=== PATIENT | male | born 2000 | race Two or more races ===

== ENCOUNTER 2018-05-15 20:44 | Emergency (ER) | payer BC ==
[2018-05-15] MEDS ORDERED: PROPARACAINE 0.5% 15 ML OPHT DROP OP ONE (21:54)
[2018-05-15] MEDS ORDERED: FLUORESCEIN SODIUM 1 MG STRIP OP ONE (21:54)
[2018-05-15 22:34] VITALS: BP 141/76
--- NOTE | 2018-05-15 23:00 | EDPHY ---
General Time Seen by Provider: 05/15/18 21:23 Narrative: CLINICAL IMPRESSION: Vitreitis ASSESSMENT/PLAN: 17-year-old male presents to the emergency department with subjective vision changes to the right eye after he was accidentally hit in the eye by a soccer ball kicked by a teammate earlier tonight. Visual acuity 20/70 in the affected eye, patient is not wearing his eyeglasses. On exam, he has no clinical signs to suggest hyphema, subconjunctival hemorrhage, cells or flare, and has no evidence of retinal detachment by ultrasound. Intra-ocular pressure is 23 on the affected eye. CT scan shows no evidence of open globe injury or orbital blowout fracture. I discussed patient's case with Dr. Santiago on-call for Ophthalmology. She did not feel patient needed emergent ophthalmological evaluation. No prescription eyedrops recommended. She would like the patient be seen Thursday for a dilated eye exam, ER return sooner for any kind of curtain or veil sensation. These recommendations were explained to the patient who verbalized understanding. Referrals given, warning signs return to emergency department sooner outlined and discharge. DIFFERENTIAL DX: Differential diagnosis includes but not limited to traumatic iritis, traumatic uveitis, retinal tear, open globe injury, hyphema ED PROCEDURES: See lab and/or imaging results below Bedside US by Dr. Perdue is negative for retinal tear or lens dislocation. IOP checked by Dr. Perdue at 23 in affected eye ED COURSE: 10:55 p.m.: CT scan read by Dr. Casey, no acute fracture or globe injury identified. 11:15 p.m.: Discussed with Dr. Santiago who is on-call for Ophthalmology. She did not feel patient needed to be seen emergently but should be seen on Thursday for a dilated eye exam. Her impression was "vitreous floaters". She advised the patient to be seen sooner for any kind of curtain or [place] sensation over the eye. No antibiotic or prescription eyedrops. Referral to Ophthalmology provided to the patient. CHIEF COMPLAINT: Right eye discomfort and blurry vision HPI: 17-year-old otherwise healthy male presents to the emergency department with right eye blurry vision after he was hit in the eye by a soccer ball kicked by a wallpaper remover steam approximately 1 hr prior to arrival. Patient wears glasses but does not have them with him. He has never had prior eye surgery. He reports blurry vision in the periphery of the right eye with black squiggly lines in his central visual field. He states initially after the accident he had decreased vision on the inferior aspect of his visual field which seems to have improved. He reports no bleeding or discharge from the eye. No headache, dizziness, nausea, vomiting. No facial pain or malocclusion. No dental injury or intraoral laceration. He did not lose consciousness. He is otherwise healthy. PAST MEDICAL HISTORY: None reported See triage summary and nurse notes for addition applicable history Pertinent Past Surgical History: Right knee surgery Family History: Noncontributory Social History: Otherwise healthy REVIEW OF SYSTEMS: A full 10 point review of systems was negative except for those mentioned in HPI. PHYSICAL EXAM: General Appearance: Alert, oriented, appropriate, cooperative, NAD, well hydrated, non-toxic appearing, VSS, no hypoxia. HEENT: TMs are clear bilaterally no perforation or FB, no injection, no evidence of serous or mucopurulent otitis. No hemotympanum or Santacruz sign Oropharynx clear is no erythema or exudates, no tonsillar hypertrophy or asymmetry. No midface instability or suggestion of [place] fracture. Dentition without abnormality. Eyes: PERRLA, photophobia noted, VA 20/70 right, 20/40 left, 20/30 together. no nystagmus, no hyphema, swelling and contusion to upper eyelid, no discharge, no pain. Conjunctiva pink, no pallor or injection, no subconjunctival hemorrhage. Pressure in right eye is 23. US negative for retinal tear. Slit-lamp exam shows no evidence of cells or flare, corneal abrasion, corneal ulcer or foreign body Neck: Supple, nontender, no lymphadenopathy, no midline pain, FROM, no meningismus. Skin: Warm, dry, no rashes, no nodules on palpation. MEDICAL DECISION MAKING: Secondary supervising physician at time of evaluation was: Dr. Perdue. Diagnosis: Vitreitis . New, requires workup Summary: See Assessment and Plan for summary of ED visit Independent visualization of images, tracing, or specimens: Yes. Decision to obtain medical records or history from someone other than the patient: No Review / Summarize previous medical records: None available Discussed patient with another provider: Dr. Perdue who also saw and examined the patient, Dr. Santiago Patient Progress: Improved. - Diagnostics Imaging Results: Imaging Impressions Face CT 05/15/18 22:29 Impression: No evidence for facial bone fracture. Results called and discussed with Maynor Montez PA-C at 05/15/2018 22:56. - History Smoking Status: Never smoked - Objective Vital Signs: Initial Vital Signs Temperature (C) 36.8 C 05/15/18 20:48 Heart Rate 100 05/15/18 20:48 Respiratory Rate 18 05/15/18 20:48 Blood Pressure 129/78 H 05/15/18 20:48 O2 Sat (%) 95 05/15/18 20:48 O2 Delivery Mode Room Air Allergies/Adverse Reactions: No Known Allergies Allergy (Unverified 05/15/18 20:50) Home Medications: Medication Instructions Recorded NK [No Known Home Meds] 05/15/18 Medications Given: Discontinued Medications Fluorescein Sodium (Bioglo) 1 mg OP EDNOW ONE Stop: 05/15/18 21:55 Last Admin: 05/15/18 22:33 Dose: 1 mg Proparacaine HCl (Alcaine 0.5%) 1 drops OP EDNOW ONE Stop: 05/15/18 21:55 Last Admin: 05/15/18 22:32 Dose: 1 drop Departure - Departure Disposition: Home, Routine, Self-Care Clinical Impression: Vitreitis, right Condition: Good Instructions: Blurred Vision (ED) Additional Instructions: DISCHARGE INSTRUCTIONS FROM YOUR DOCTOR Thank you for visiting our emergency department today. Please keep in mind that discharge from the emergency department does not mean that there is nothing wrong - it simply means that we have not identified an emergency condition that requires further evaluation or treatment in the hospital. You should always plan to follow up with primary care for re-evaluation of your condition in the next 2-3 days. If you have been referred to a specialist, please call as soon as possible (today or tomorrow) to schedule your follow up appointment at the appropriate time. DIAGNOSTIC EVALUATION IN THE EMERGENCY DEPARTMENT TONIGHT INCLUDED CT SCAN OF YOUR ORBIT WHICH WAS NORMAL SHOWING NO FRACTURE OR GLOBE INJURY. ULTRASOUND OF THE EYE WAS NORMAL. WE DISCUSSED HER CASE WITH THE ON-CALL EDITOR [employer] PHOTOGRAPH, DR. SANTIAGO, SHE WOULD LIKE YOU TO BE SEEN IN THE OFFICE ON THURSDAY. PLEASE CALL FOR AN APPOINTMENT. LET THEM KNOW YOUR IN THE ER AND THAT WE SPOKE TO THE ON-CALL PHYSICIAN. PLEASE RETURN TO THE EMERGENCY DEPARTMENT IMMEDIATELY FOR SENSATION OF A CURTAIN OR VAIL BEING DRAWN OVER URI, WORSENING VISION CHANGES, SEVERE HEADACHE, DIZZINESS, NAUSEA OR VOMITING, OR ANY OTHER CONCERNS. People present with illnesses and injuries in different ways, and it is always possible that we have missed something. You may always return for re-evaluation if symptoms worsen or if they are not improving or if you develop new/different symptoms. Again, thank you for choosing our emergency department. We hope that you feel better. Referrals: NONE *PRIMARY CARE P,. [Primary Care Provider] - As per Instructions TIFFANY SANTIAGO [Non Staff Provider (MD)] - 1-2 days without fail
== END 2018-05-15 23:31 | disposition home or self-care (01) ==
DX: H43.89 Other disorders of vitreous body (principal)